=== PATIENT | female | born 1995 | race Caucasian/White ===

== ENCOUNTER → 2021-01-13 19:45 | Observation (INO) ==
[2021-01-13 18:06] LABS: Basophils % 0.3 %; Eosinophils # 0.2 K/mcL (0.0-0.6); Eosinophils % 1.7 %; Hematocrit 39.1 % (35.3-44.9); Hemoglobin 12.9 g/dL (11.5-15.4); Immature Granulocytes % 1.9 % (0-4); Lymphocytes # 1.2 K/mcL (0.6-4.6); Lymphocytes % 9.4 %; Mean Corpuscular Hemoglobin 30.6 pg (28.0-33.3); Mean Corpuscular Volume 92.9 fL (83.0-100.0); Monocytes # 1.1 K/mcL (0.0-1.3); Monocytes % 8.3 %; Neutrophils # 10.1 K/mcL (1.6-8.9); Platelet Count 235 K/mcL (140-400); Red Blood Count 4.21 M/mcL (3.82-4.97); Red Cell Distribution Width 13.7 % (11.5-14.5); Segmented Neutrophils % 78.4 %; White Blood Count 12.9 K/mcL (4.3-11.1)
[2021-01-13 18:17] LABS: Protein/Creatinine Ratio,Urine 0.31 mg/mg (0.00-0.20)
[2021-01-13 18:24] LABS: Alanine Aminotransferase 19 Units/L (7-52); Aspartate Amino Transferase 16 Units/L (13-39); BUN/Creatinine Ratio 13 (6-26); Blood Urea Nitrogen 6 mg/dL (6-20); Lactate Dehydrogenase 167 Units/L (140-271); Uric Acid 3.7 mg/dL (2.3-7.6); eGFR For African Americans > 60 (> 60); eGFR For Non-African Americans > 60 (> 60)
[2021-01-13 19:12] LABS: Amorphous Sediment,Urine Few per hpf (None-Few); Bacteria,Urine Few per hpf (None-Few); Bilirubin,Urine Negative (Negative); Blood,Urine Negative (Negative); Clarity,Urine Turbid (Clear); Color,Urine Light-Yellow (Yellow); Glucose,Urine (UA) 100 mg/dL (Normal); Ketones,Urine Negative (Negative); Leukocyte Esterase,Urine Small (Negative); Mucus,Urine Few per lpf (None-Few); Nitrite,Urine Negative (Negative); PH,Urine 7.5 pH Units (5.0-8.0); Protein,Urine Trace mg/dL (Neg-Trace); RBC,Urine 0-3 per hpf (0-3); Specific Gravity,Urine 1.015 (1.010-1.025); Squamous Epithelial Cell,Urine Moderate per hpf (None-Few); Urobilinogen,Urine Normal (Normal); WBC,Urine 0-3 per hpf (0-3)
== END | disposition home or self-care (01) ==
LOC: 1NENULAB
PROVIDERS: ADMIT Obstetrics & Gynecology; ATTEND Obstetrics & Gynecology

== ENCOUNTER → 2021-01-15 18:22 | Observation (INO) ==
[2021-01-15 16:26] LABS: Basophils % 0.2 %; Eosinophils # 0.2 K/mcL (0.0-0.6); Eosinophils % 1.2 %; Hematocrit 36.2 % (35.3-44.9); Hemoglobin 12.4 g/dL (11.5-15.4); Immature Granulocytes % 1.6 % (0-4); Lymphocytes # 1.3 K/mcL (0.6-4.6); Lymphocytes % 8.3 %; Mean Corpuscular HGB Conc 34.3 g/dL (31.6-35.5); Mean Corpuscular Hemoglobin 31.7 pg (28.0-33.3); Mean Corpuscular Volume 92.6 fL (83.0-100.0); Mean Platelet Volume 12.1 fL (9.4-12.4); Monocytes # 1.1 K/mcL (0.0-1.3); Monocytes % 7.3 %; Neutrophils # 12.5 K/mcL (1.6-8.9); Platelet Count 215 K/mcL (140-400); Red Blood Count 3.91 M/mcL (3.82-4.97); Red Cell Distribution Width 13.8 % (11.5-14.5); Segmented Neutrophils % 81.4 %; White Blood Count 15.3 K/mcL (4.3-11.1)
[2021-01-15 16:27] LABS: Protein/Creatinine Ratio,Urine 0.2 mg/mg (0.00-0.20)
[2021-01-15 18:21] LABS: Alanine Aminotransferase 17 Units/L (7-52); Aspartate Amino Transferase 17 Units/L (13-39); BUN/Creatinine Ratio 17 (6-26); Blood Urea Nitrogen 9 mg/dL (6-20); Lactate Dehydrogenase 176 Units/L (140-271); Uric Acid 4.4 mg/dL (2.3-7.6); eGFR For African Americans > 60 (> 60); eGFR For Non-African Americans > 60 (> 60)
== END | disposition home or self-care (01) ==
LOC: 1NENULAB
PROVIDERS: ADMIT Pediatrics Pediatric Emergency Medicine; ATTEND Obstetrics & Gynecology

== ENCOUNTER 2021-01-19 04:36 | Inpatient (IN) ==
[2021-01-19] MEDS ORDERED: Metoclopramide 10 MG/2 ML VIAL IVP PRN (04:42)
[2021-01-19] MEDS ORDERED: Ondansetron 4 MG/2 ML VIAL IVP PRN (04:42)
[2021-01-19] MEDS ORDERED: Naloxone 0.4 MG/ML INJ IVP PRN (04:42)
[2021-01-19] MEDS ORDERED: Famotidine 20 MG/2 ML VIAL IVP PRN (04:42)
[2021-01-19] MEDS ORDERED: Lidocaine 1% 20 ML MDV INFILT PRN (04:42)
[2021-01-19] MEDS ORDERED: *HR* Nalbuphine 10 MG/ML AMPUL IV PRN (04:42)
[2021-01-19] MEDS ORDERED: Ringers Solution, Lactated 1,000 ML IVC SCH (04:45)
[2021-01-19] MEDS ORDERED: miSOPROStoL 25 MCG TABLET PO PRN (04:51)
[2021-01-19 05:23] LABS: Basophils # 0.1 K/mcL (0.0-0.2); Basophils % 0.3 %; Eosinophils # 0.2 K/mcL (0.0-0.6); Eosinophils % 1.6 %; Hematocrit 36.8 % (35.3-44.9); Hemoglobin 12.3 g/dL (11.5-15.4); Immature Granulocytes % 2.4 % (0-4); Lymphocytes # 1.4 K/mcL (0.6-4.6); Lymphocytes % 10.1 %; Mean Corpuscular HGB Conc 33.4 g/dL (31.6-35.5); Mean Corpuscular Hemoglobin 31.1 pg (28.0-33.3); Mean Corpuscular Volume 93.2 fL (83.0-100.0); Mean Platelet Volume 11.9 fL (9.4-12.4); Monocytes # 1.2 K/mcL (0.0-1.3); Monocytes % 8.3 %; Neutrophils # 11.1 K/mcL (1.6-8.9); Platelet Count 222 K/mcL (140-400); Red Blood Count 3.95 M/mcL (3.82-4.97); Red Cell Distribution Width 13.6 % (11.5-14.5); Segmented Neutrophils % 77.3 %; White Blood Count 14.3 K/mcL (4.3-11.1)
[2021-01-19 05:28] LABS: Amphetamine Screen,Urine Negative ng/mL (Cutoff=1000); Barbiturate Screen,Urine Negative ng/mL (Cutoff=200); Benzodiazepines Screen,Urine Negative ng/mL (Cutoff=200); Cannabinoid Screen,Urine Negative ng/mL (Cutoff = 50); Cocaine Screen,Urine Negative ng/mL (Cutoff= 300); Opiate Screen,Urine Negative ng/mL (Cutoff=300); Phencyclidine Screen,Urine Negative ng/mL (Cutoff=25)
[2021-01-19 06:28] LABS: Influenza A PCR Negative (Negative); Influenza B PCR Negative (Negative); Resp. Syncytial Virus PCR Negative (Negative)
[2021-01-19 06:30] LABS: SARS-CoV-2 by PCR (In House) Negative (Negative)
[2021-01-19] MEDS: Oxytocin 20 units/ LR 1000 mL 20 UNIT/1,000 ML BAG IVC SCH (14:16)
[2021-01-19] MEDS ORDERED: EPHEDrine 50 MG/ML VIAL IVP PRN (15:27)
[2021-01-19] MEDS ORDERED: Epidural Premix (fent/bupiv) 110 ML EP SCH (15:30)
[2021-01-19] MEDS ORDERED: Acetaminophen 325 MG TABLET PO ONE (23:00)
[2021-01-20] MEDS ORDERED: Acetaminophen 325 MG TABLET PO ONE (04:29)
[2021-01-20 04:44] LABS: Alanine Aminotransferase 16 Units/L (7-52); Albumin 3.5 g/dL (3.5-5.7); Albumin/Globulin Ratio 1.3 (1.1-2.2); Alkaline Phosphatase 124 Units/L (34-104); Aspartate Amino Transferase 23 Units/L (13-39); BUN/Creatinine Ratio 14 (6-26); Bilirubin,Total 0.5 mg/dL (0.3-1.0); Blood Urea Nitrogen 14 mg/dL (6-20); Calcium 8.9 mg/dL (8.6-10.3); Carbon Dioxide 18 mEq/L (23-29); Chloride 105 mEq/L (98-107); Globulin 2.7 g/dL (2.4-3.5); Glucose 83 mg/dL (70-105); Osmolality,Calculated 280 (280-300); Potassium 4.4 mEq/L (3.5-5.1); Sodium 135 mEq/L (136-145); Total Protein 6.2 g/dL (6.4-8.9); eGFR For African Americans > 60 (> 60); eGFR For Non-African Americans > 60 (> 60)
[2021-01-20] MEDS ORDERED: Ondansetron 4 MG/2 ML VIAL ONE (05:44)
[2021-01-20] MEDS ORDERED: Ketorolac 30 MG/ML VIAL ONE (05:44)
[2021-01-20] MEDS ORDERED: Acetaminophen IV 1,000 MG/100 ML BAG IVPB ONE (06:05)
[2021-01-20] MEDS ORDERED: *HR* Morphine Sulfate/PF 10 MG/10 ML AMPUL ONE (06:06)
[2021-01-20] MEDS ORDERED: Metoclopramide 10 MG/2 ML VIAL IVP PRN (07:05)
[2021-01-20] MEDS ORDERED: Rho Immune Globulin 1,500 UNIT SYRINGE IM ONE (07:05)
[2021-01-20] MEDS ORDERED: Ondansetron 4 MG/2 ML VIAL IVP PRN (07:05)
[2021-01-20] MEDS ORDERED: Oxytocin 20 units/ LR 1000 mL 20 UNIT/1,000 ML BAG IVC SCH (07:15)
[2021-01-20] MEDS ORDERED: Ringers Solution, Lactated 1,000 ML IVC SCH (07:15)
[2021-01-20] MEDS ORDERED: cephALEXin 500 MG CAPSULE PO SCH (09:00)
[2021-01-20] MEDS ORDERED: Ibuprofen 600 MG TABLET PO SCH (09:00)
[2021-01-20] MEDS: *HR* OxyCODONE Immed Rel 5 MG TABLET PO PRN ×3 (09:53→20:48)
[2021-01-20] MEDS: Oxytocin 20 units/ LR 1000 mL 20 UNIT/1,000 ML BAG IVC SCH (09:53)
[2021-01-20] MEDS: Ibuprofen 600 MG TABLET PO SCH ×2 (11:14→18:30)
[2021-01-20] MEDS: cephALEXin 500 MG CAPSULE PO SCH ×2 (11:14→20:47)
[2021-01-20] MEDS: Acetaminophen 325 MG TABLET PO SCH ×2 (11:15→18:31)
[2021-01-20] MEDS: metroNIDAZOLE 500 MG TABLET PO SCH ×2 (15:10→20:47)
[2021-01-20] MEDS ORDERED: Methylergonovine 0.2 MG/ML AMPUL IM ONE (16:08)
[2021-01-20] MEDS: Simethicone 80 MG TAB.CHEW PO PRN (20:48)
[2021-01-21] MEDS: Acetaminophen 325 MG TABLET PO SCH ×4 (00:06→22:08)
[2021-01-21] MEDS: Ibuprofen 600 MG TABLET PO SCH ×4 (00:06→18:29)
[2021-01-21] MEDS: *HR* OxyCODONE Immed Rel 5 MG TABLET PO PRN ×3 (01:02→15:53)
[2021-01-21 04:12] LABS: Basophils % 0.1 %; Eosinophils % 0.3 %; Hematocrit 27.8 % (35.3-44.9); Immature Granulocytes % 0.9 % (0-4); Lymphocytes # 0.8 K/mcL (0.6-4.6); Lymphocytes % 5.7 %; Mean Corpuscular HGB Conc 32.7 g/dL (31.6-35.5); Mean Corpuscular Hemoglobin 30.8 pg (28.0-33.3); Mean Corpuscular Volume 94.2 fL (83.0-100.0); Mean Platelet Volume 11.7 fL (9.4-12.4); Monocytes # 0.9 K/mcL (0.0-1.3); Monocytes % 6.4 %; Neutrophils # 12.4 K/mcL (1.6-8.9); Platelet Count 172 K/mcL (140-400); Red Blood Count 2.95 M/mcL (3.82-4.97); Red Cell Distribution Width 13.7 % (11.5-14.5); Segmented Neutrophils % 86.6 %; White Blood Count 14.3 K/mcL (4.3-11.1)
[2021-01-21 04:15] LABS: Hemoglobin 9.1 g/dL (11.5-15.4)
[2021-01-21] MEDS: Simethicone 80 MG TAB.CHEW PO PRN ×2 (04:42→12:29)
[2021-01-21] MEDS: cephALEXin 500 MG CAPSULE PO SCH ×3 (04:42→19:51)
[2021-01-21] MEDS: Prenatal Vit/FA 1 EACH TABLET PO SCH (09:09)
[2021-01-21] MEDS: metroNIDAZOLE 500 MG TABLET PO SCH ×3 (09:09→19:51)
[2021-01-21] MEDS: *HR* Enoxaparin 60 MG/0.6 ML SYRINGE SQ SCH ×2 (09:10→19:52)
[2021-01-21] MEDS: Sennosides 8.6 MG TABLET PO PRN ×2 (10:47→22:07)
[2021-01-21] MEDS ORDERED: Lanolin 7 G OINT...G. TP PRN (12:27)
[2021-01-22] MEDS: Ibuprofen 600 MG TABLET PO SCH ×3 (00:28→13:22)
[2021-01-22] MEDS: Acetaminophen 325 MG TABLET PO SCH ×2 (04:34→10:53)
[2021-01-22] MEDS: *HR* OxyCODONE Immed Rel 5 MG TABLET PO PRN ×3 (04:35→17:55)
[2021-01-22 07:27] VITALS: BP 104/70; PULSE 106; TEMP 97.5; O2SAT 97
[2021-01-22] MEDS: Prenatal Vit/FA 1 EACH TABLET PO SCH (07:52)
[2021-01-22] MEDS: Sennosides 8.6 MG TABLET PO PRN (07:52)
[2021-01-22] MEDS: *HR* Enoxaparin 60 MG/0.6 ML SYRINGE SQ SCH (07:53)
[2021-01-22 13:10] LABS: Basophils % 0.2 %; Eosinophils # 0.2 K/mcL (0.0-0.6); Eosinophils % 1.9 %; Hemoglobin 8.1 g/dL (11.5-15.4); Immature Granulocytes % 1.7 % (0-4); Lymphocytes # 0.8 K/mcL (0.6-4.6); Lymphocytes % 6.7 %; Mean Corpuscular HGB Conc 33.8 g/dL (31.6-35.5); Mean Corpuscular Hemoglobin 31.8 pg (28.0-33.3); Mean Corpuscular Volume 94.1 fL (83.0-100.0); Mean Platelet Volume 12.2 fL (9.4-12.4); Monocytes # 0.6 K/mcL (0.0-1.3); Monocytes % 4.9 %; Neutrophils # 10.2 K/mcL (1.6-8.9); Platelet Count 199 K/mcL (140-400); Red Blood Count 2.55 M/mcL (3.82-4.97); Red Cell Distribution Width 13.7 % (11.5-14.5); Segmented Neutrophils % 84.6 %
[2021-01-22 13:48] LABS: Alanine Aminotransferase 24 Units/L (7-52); Aspartate Amino Transferase 28 Units/L (13-39); BUN/Creatinine Ratio 19 (6-26); Blood Urea Nitrogen 10 mg/dL (6-20); Lactate Dehydrogenase 198 Units/L (140-271); Uric Acid 4.7 mg/dL (2.3-7.6); eGFR For African Americans > 60 (> 60); eGFR For Non-African Americans > 60 (> 60)
== END 2021-01-22 18:00 | disposition home or self-care (01) | DRG 540 ==
LOC: 1NENULAB 04:36 → 1NENUOBS 01-20 09:44
PROVIDERS: ADMIT Student in an Organized Health Care Education/Training Program; ATTEND Student in an Organized Health Care Education/Training Program